=== PATIENT | female | born 1985 | race Caucasian/White ===

== ENCOUNTER 2019-04-30 15:45 | Emergency (ER) | payer MEDICARE, MEDICAID ==
[2019-04-30 17:19] LABS: HEMATOCRIT 39.4 % (36.0-47.0); HEMOGLOBIN 12.4 g/dl (12.0-15.5); MEAN CORPUSCULAR HEMOGLOBIN 30.8 pg (27.0-33.0); MEAN CORPUSCULAR HGB CONC 31.5 g/dl (32.0-36.5); PLATELET COUNT, AUTOMATED 253 10^3/uL (150-450); RED BLOOD COUNT 4.02 10^6/uL (4.00-5.40); WHITE BLOOD COUNT 6.8 10^3/uL (4.0-10.0)
[2019-04-30 17:45] LABS: AMPHETAMINES LEVEL URINE NEGATIVE (NEGATIVE); BARBITURATES URINE NEGATIVE (NEGATIVE); BENZODIAZEPINES URINE NEGATIVE (NEGATIVE); CANNABINOIDS URINE NEGATIVE (NEGATIVE); COCAINE METABOLITE URINE NEGATIVE (NEGATIVE); METHADONE URINE NEGATIVE (NEGATIVE); OPIATES URINE NEGATIVE (NEGATIVE); PHENCYCLIDINE URINE NEGATIVE (NEGATIVE)
[2019-04-30 17:48] LABS: HCG, SERUM QUALITATIVE NEGATIVE (NEGATIVE)
[2019-04-30 18:01] LABS: ACETAMINOPHEN LEVEL < 2.0 UG/ML (10.0-30.0); ALBUMIN 4.2 GM/DL (3.2-5.2); ALT/SGPT 11 U/L (12-78); BILIRUBIN,DIRECT < 0.1 MG/DL (0.0-0.2); BILIRUBIN,TOTAL 0.4 MG/DL (0.2-1.0); BLOOD UREA NITROGEN 29 MG/DL (7-18); CALCIUM LEVEL 9.6 MG/DL (8.5-10.1); CARBON DIOXIDE LEVEL 27 MEQ/L (21-32); CHLORIDE LEVEL 103 MEQ/L (98-107); ETHYL ALCOHOL (ETHANOL) < 0.003 % (0.000-0.010); GLOMERULAR FILTRATION RATE 49.9 (>60); GLUCOSE, FASTING 88 MG/DL (70-100); SALICYLATE LEVEL 2.3 MG/DL (5.0-30.0); SODIUM LEVEL 139 MEQ/L (136-145); TOTAL PROTEIN 7.4 GM/DL (6.4-8.2)
--- NOTE | 2019-04-30 18:20 | REP ---
Clinical: Trauma. Technique: AP, lateral, bilateral oblique views of the right hand. Findings: There is a comminuted fracture at the metaphyseal base of the fifth digit proximal phalanx. Impression: Fracture at the metaphyseal base of the fifth proximal phalanx. Electronically Signed by Danny Blank MD 04/30/2019 06:11 P
--- NOTE | 2019-04-30 18:25 | REPVR ---
PROCEDURE INFORMATION: Exam: CT Maxillofacial Without Contrast Exam date and time: 04/30/2019 5:57 PM Age: 34 years old Clinical indication: Pain; Other: Facial; Additional info: Trauma TECHNIQUE: Imaging protocol: Computed tomography images of the face without contrast. Radiation optimization: All CT scans at this facility use at least one of these dose optimization techniques: automated exposure control; mA and/or kV adjustment per patient size (includes targeted exams where dose is matched to clinical indication); or iterative reconstruction. COMPARISON: No relevant prior studies available. FINDINGS: Orbits: Orbits are normal. Globes are unremarkable. Sinuses: Normal. No air-fluid levels. Bones/joints: No acute fracture. Oropharynx: There is a linear metallic density demonstrated in the anterior oral cavity. Clinical correlation needed. Soft tissues: Soft tissue edema demonstrated at the chin and extending along the left darlene mandible and buccal region consistent with recent history of trauma. IMPRESSION: 1. There is a linear metallic density demonstrated in the anterior oral cavity. Clinical correlation needed. 2. Soft tissue edema demonstrated at the chin and extending along the left darlene mandible and buccal region consistent with recent history of trauma. No fracture. Electronically signed by: Rodri Urbano On 04/30/2019 18:25:09 PM
[2019-04-30 19:15] VITALS: BP 132/62
== END 2019-04-30 19:17 | disposition home or self-care (01) ==
LOC: M ED 15:45
DX: S62.616A Displaced fracture of proximal phalanx of right little finger, initial encounter for closed fracture (principal); T74.11XA Adult physical abuse, confirmed, initial encounter; S00.83XA Contusion of other part of head, initial encounter; M79.9 Soft tissue disorder, unspecified; F43.10 Post-traumatic stress disorder, unspecified; F17.210 Nicotine dependence, cigarettes, uncomplicated; Z88.0 Allergy status to penicillin; Z88.8 Allergy status to other drugs, medicaments and biological substances; Z79.899 Other long term (current) drug therapy
CPT/HCPCS: 36415; 70486; 73130; 80048; 80076; 80307; 84443; 84703; 85027; 99283; G0480

== ENCOUNTER → 2019-10-17 | Outpatient (REF) | payer MEDICARE, MEDICAID ==
[2019-10-17 15:47] LABS: HCG, SERUM QUALITATIVE NEGATIVE (NEGATIVE)
== END ==
LOC: M SFHCPLAZ 13:27
PROVIDERS: ATTEND Physician Assistant Medical
DX: J45.20 Mild intermittent asthma, uncomplicated (principal)
CPT/HCPCS: 36415; 84703; G0463